=== PATIENT | female | born 1950 | race Caucasian/White ===

== ENCOUNTER 2018-03-28 11:19 | Observation (INO) ==
--- NOTE | 2018-03-28 11:59 | DR.H&P ---
H&P - History & Physical for Day of: H&P Date: 03/28/18 - Chief Complaint Chief Complaint: Chest Pain - History of Present Illness History of Present Illness: Patient is a 67 year old female that presents for evaluation of medical complaints. Patient reports that she was at [facility] 3 weeks ago. States that she was going to be evaluated for diverticulitis but reports that "my breathing went bad". Reports that she was placed on the darrell tilator x2 days. States that since she was discharged, she still has generalized weakness. Reports that she is short of breath. Reports that she is unable to walk distances without getting SOB. Does report chest pain that radiates up bilateral sides of neck. Reports that it is continuous. Reports a "funny feeling" in her chest. Denies any alleviating factors. Does state that she has a history of CHF. Reports that she had a heart catheterization done 4 years ago and was normal. Reports that she hasn't had a cardiac workup since. Is scheduled to see Dr. Rodriguez on April 18. Denies any other complaints. - Past Medical History Past Medical History: Arthritis, COPD, Hypertension Additional Medical History: Chronic respiratory failure with oxygen dependence 06/12. Sjogren's Syndrome, Insomnia, Left shoulder pain, Chronic Neck pain - Past Surgical History Surgical History: Cholecystectomy, Hysterectomy - Family History Family Medical History: Coronary Artery Disease - Social History Does patient currently use any type of tobacco product: No Have you used tobacco products in the last 12 months: No Type of Tobacco Use: None Does any household member use tobacco: No Alcohol Use: None Drug Use: None - Review of Systems Constitutional: Malaise Eyes: No Symptoms Reported ENT: No Symptoms Reported Respiratory: Shortness of Breath Cardiovascular: Chest Pain, Orthopnea Gastrointestinal: No Symptoms Reported Genitourinary: No Symptoms Reported Musculoskeletal: No Symptoms Reported Skin: No Symptoms Reported Neurological: No Symptoms Reported Oriented: Normal Eyes: Normal Ear: Normal Nose: Normal Throat: Normal Respiratory: Clear Throughout Cardiovascular: Normal : Normal Auscultation: Bowel Sounds: Normal Palpation: Normal Tenderness: Normal Skin: Normal Musculoskeletal: Shoulder Psychiatric: Normal Mood Description: Calm Affect: Normal Speech Pattern: Clear - Assessment/Plan (1) Chest pain Status: Acute Plan: Cardiac Enzymes/EKGs, Telemetry. Consider transfer to [facility] (2) Chronic respiratory failure Status: Acute Plan: Continuous O2 2L/m NC (3) Dyspnea Status: Acute Plan: Monitor O2 sats, Cardiac Workup, CXR, O2 - Allergies Allergies/Adverse Reactions: Allergies Allergy/AdvReac Type Severity Reaction Status Date / Time codeine Allergy Verified 03/28/18 12:04 levofloxacin [From Levaquin] Allergy Verified 03/28/18 12:04 metronidazole [From Flagyl] Allergy Verified 03/28/18 12:04 Quinidine-Quinine Analogues Allergy Verified 03/28/18 12:04 (Cincho secukinumab [From Cosentyx] Allergy Verified 03/28/18 12:04 Sulfa (Sulfonamide Allergy Verified 03/28/18 12:04 Antibiotics) [SULFA]
[2018-03-28 14:36] LABS: BASOPHILS % (AUTO) 0.9 % (0.2-1.0); EOSINOPHILS # (AUTO) 0.3 x10^3/uL (0.0-0.2); EOSINOPHILS % (AUTO) 5.2 % (0.9-2.9); HEMATOCRIT 27.4 % (36.0-47.0); LYMPHOCYTES # (AUTO) 1.8 X10^3/uL (1.3-2.9); LYMPHOCYTES % (AUTO) 36.6 % (21.0-51.0); MEAN CORPUSCULAR HEMOGLOBIN 29.6 pg (27.0-34.0); MEAN CORPUSCULAR HGB CONC 32.7 g/dL (33.0-35.0); MEAN CORPUSCULAR VOLUME 90.5 fL (80.0-100.0); MEAN PLATELET VOLUME 8.4 fL (7.4-11.0); MONOCYTES # (AUTO) 0.4 x10^3/uL (0.3-0.8); MONOCYTES % (AUTO) 7.6 % (0.0-13.0); NEUTROPHILS # (AUTO) 2.4 x10^3/uL (2.2-4.8); NEUTROPHILS % (AUTO) 49.7 % (42.0-75.0); PLATELET COUNT 235 X10^3/uL (150.0-450.0); RED BLOOD COUNT 3.03 X10^6/uL (3.5-5.4); RED CELL DISTRIBUTION WIDTH 16.7 % (11.6-16.5); WHITE BLOOD COUNT 4.9 X10^3/uL (3.6-10.0)
[2018-03-28 14:49] LABS: ALANINE AMINOTRANSFERASE 24 Units/L (12-78); ALBUMIN 2.8 g/dL (3.4-5.0); ALKALINE PHOSPHATASE 71 Units/L (46-116); ASPARTATE AMINO TRANSFERASE 20 Units/L (15-37); BLOOD UREA NITROGEN 10 mg/dL (7-18); CALCIUM 8.1 mg/dL (8.5-10.1); CARBON DIOXIDE 26.6 mmol/L (21-32); CHLORIDE 104 mmol/L (98-107); COR CA(FOR HYPOALB) 9.1 mg/dL (8.5-10.1); CREATININE 1.33 mg/dL (0.55-1.02); MAGNESIUM 1.9 mg/dL (1.7-2.9); SODIUM 141 mmol/L (136-145); TOTAL PROTEIN 7.5 g/dL (6.4-8.2); eGFR NON BLACK RACES 42 (>60)
[2018-03-28] MEDS ORDERED: PROVENTIL NEB TX 0.083% 2.5MG/ 3ML NEB PRN (14:58)
[2018-03-28 15:01] LABS: CREATINE KINASE 50 Units/L (26-192); CREATINE KINASE MB < 1.0 ng/mL (0-4.0); TROPONIN I < 0.02 ng/mL (0-1.5)
--- NOTE | 2018-03-28 15:43 | RAD ---
Exam: Portable chest History: 67-year-old female with chest pain Comparison: None Findings: Mild cardiomegaly is seen. No significant vascular congestion. However prominent interstitium is noted bilaterally, particularly in the left midlung. This is likely related to interstitial scarring though possibility of superimposed airspace disease cannot be excluded. No significant effusion on either side. Bony thorax is unremarkable. Impression: 1. Mild cardiomegaly. 2. Prominent interstitium noted bilaterally, particularly in the left mid lung. These findings are likely related to interstitial scarring though possibility of superimposed airspace disease cannot be excluded Reported By:
[2018-03-28 16:10] VITALS: BMI 27.3
[2018-03-28 16:52] LABS: BILIRUBIN,URINE NEGATIVE (NEGATIVE); BLOOD/HEMOGLOBIN,URINE 1+ (NEGATIVE); GLUCOSE, URINE NEGATIVE (NEGATIVE); KETONES,URINE NEGATIVE (NEGATIVE); LEUKOCYTE ESTERASE ,URINE NEGATIVE (NEGATIVE); NITRITES,URINE NEGATIVE (NEGATIVE); PROTEIN,URINE NEGATIVE (NEGATIVE); UROBILINOGEN,URINE NORMAL (NORMAL)
[2018-03-28] MEDS: DUONEB 0.5 MG/3 MG NEB SCH ×2 (16:53→17:03)
[2018-03-28 17:03] LABS: APPEARANCE,URINE CLEAR (CLEAR); BACTERIA,URINE NEGATIVE /HPF (NEGATIVE); COLOR,URINE YELLOW (YELLOW); RBC,URINE 0-2 /HPF (NONE SEEN); SQUAMOUS EPITHELIAL CELL,UR FEW /HPF (NEGATIVE)
[2018-03-28] MEDS ORDERED: CATAPRES TAB 0.1 MG PO PRN (17:12)
[2018-03-28] MEDS ORDERED: LOPRESSOR INJ 5 MG AMP IVP PRN (17:14)
[2018-03-28] MEDS ORDERED: RESTORIL CAP 15 MG PO PRN (18:58)
[2018-03-28] MEDS ORDERED: POTASSIUM CHLORIDE LIQ 20 MEQ UDC PO PRN (20:22)
[2018-03-28] MEDS ORDERED: POTASSIUM CHL 60 MEQ/NS 0.45% 500 ML IV PRN (20:22)
[2018-03-28] MEDS ORDERED: MICRO K EXTEN CAP 10 MEQ PO PRN (20:22)
[2018-03-28] MEDS ORDERED: POTASSIUM CHL 40 MEQ/NS 0.45% 500 ML IV PRN (20:22)
[2018-03-28] MEDS ORDERED: K-DUR TAB 20 MEQ PO PRN (20:22)
[2018-03-28] MEDS ORDERED: K-RIDER 10 MEQ/NS 100 ML 10 MEQ/100 ML BAG IV PRN (20:22)
[2018-03-28] MEDS ORDERED: KLOR-CON PO PRN (20:22)
[2018-03-28 20:37] LABS: CKMB % 2.1 % (<4); CREATINE KINASE 47 Units/L (26-192); CREATINE KINASE MB < 1.0 ng/mL (0-4.0); TROPONIN I < 0.02 ng/mL (0-1.5)
[2018-03-28] MEDS: LOVENOX INJ 30 MG SYR SC SCH (20:41)
[2018-03-28] MEDS ORDERED: BROVANA IN SCH (21:00)
[2018-03-28] MEDS ORDERED: PULMICORT NEB TX 0.5 MG NEB SCH (21:00)
[2018-03-28] MEDS ORDERED: MAALOX or MYLANTA PO PRN (21:43)
[2018-03-28] MEDS: MAGNESIUM SULFATE 1 GRAM/100 mL PREMIX 1 GM/100 ML BAG IV PRN ×2 (23:05→23:56)
[2018-03-29] MEDS: DUONEB 0.5 MG/3 MG NEB SCH ×3 (00:34→13:30)
[2018-03-29 02:28] LABS: CKMB % 2.9 % (<4); CREATINE KINASE 35 Units/L (26-192); CREATINE KINASE MB < 1.0 ng/mL (0-4.0); TROPONIN I 0.02 ng/mL (0-1.5)
[2018-03-29 06:11] LABS: BASOPHILS % (AUTO) 0.5 % (0.2-1.0); EOSINOPHILS # (AUTO) 0.2 x10^3/uL (0.0-0.2); EOSINOPHILS % (AUTO) 4.6 % (0.9-2.9); HEMATOCRIT 27.5 % (36.0-47.0); HEMOGLOBIN 8.9 g/dL (12.0-16.0); LYMPHOCYTES # (AUTO) 1.4 X10^3/uL (1.3-2.9); LYMPHOCYTES % (AUTO) 34.9 % (21.0-51.0); MEAN CORPUSCULAR HEMOGLOBIN 29.5 pg (27.0-34.0); MEAN CORPUSCULAR HGB CONC 32.5 g/dL (33.0-35.0); MEAN CORPUSCULAR VOLUME 90.7 fL (80.0-100.0); MEAN PLATELET VOLUME 8.4 fL (7.4-11.0); MONOCYTES # (AUTO) 0.4 x10^3/uL (0.3-0.8); MONOCYTES % (AUTO) 9.3 % (0.0-13.0); NEUTROPHILS % (AUTO) 50.7 % (42.0-75.0); PLATELET COUNT 204 X10^3/uL (150.0-450.0); RED BLOOD COUNT 3.04 X10^6/uL (3.5-5.4); RED CELL DISTRIBUTION WIDTH 16.9 % (11.6-16.5)
[2018-03-29 06:35] LABS: ALANINE AMINOTRANSFERASE 20 Units/L (12-78); ALBUMIN 2.5 g/dL (3.4-5.0); ALKALINE PHOSPHATASE 60 Units/L (46-116); ASPARTATE AMINO TRANSFERASE 19 Units/L (15-37); BLOOD UREA NITROGEN 11 mg/dL (7-18); CALCIUM 7.9 mg/dL (8.5-10.1); CARBON DIOXIDE 25.7 mmol/L (21-32); CHLORIDE 106 mmol/L (98-107); CHOL/HDL RATIO 6.4 (0.0-5.0); CHOLESTEROL 197 mg/dL (0-200); COR CA(FOR HYPOALB) 9.1 mg/dL (8.5-10.1); COR NA(FOR HYPERGLY) 142 mmol/L (136-145); HDL CHOLESTEROL 31 mg/dL (40-60); MAGNESIUM 2.8 mg/dL (1.7-2.9); SODIUM 142 mmol/L (136-145); TOTAL PROTEIN 6.8 g/dL (6.4-8.2); TRIGLYCERIDES 190 mg/dL (0-150); eGFR NON BLACK RACES 58 (>60)
[2018-03-29] MEDS: LOVENOX INJ 30 MG SYR SC SCH (08:41)
[2018-03-29] MEDS ORDERED: REMERON PO SCH ×2 (09:00→21:00)
[2018-03-29] MEDS ORDERED: PATIENT'S HOME MEDICATION (Mycophenolate Mofetil [Mycophenolate Mofetil] 500 MG) PO SCH (09:00)
[2018-03-29] MEDS ORDERED: ASPIRIN EC 81 MG PO SCH (09:00)
[2018-03-29] MEDS ORDERED: NexIUM PO SCH (09:00)
[2018-03-29] MEDS ORDERED: PROTONIX TAB 40 MG PO SCH (09:00)
[2018-03-29] MEDS ORDERED: CARAFATE PO SCH (09:00)
[2018-03-29] MEDS ORDERED: K-DUR TAB 20 MEQ PO SCH (09:00)
[2018-03-29] MEDS ORDERED: LASIX PO SCH (09:00)
[2018-03-29] MEDS ORDERED: SYNTHROID 75 mcg TAB PO SCH (09:00)
[2018-03-29] MEDS ORDERED: AUGMENTIN 875 MG/125 MG TAB PO SCH (09:00)
[2018-03-29] MEDS ORDERED: CATAPRES TAB 0.1 MG PO SCH (09:00)
[2018-03-29] MEDS ORDERED: COREG TAB 3.125 MG PO SCH (09:00)
[2018-03-29] MEDS ORDERED: COZAAR PO SCH (09:00)
--- NOTE | 2018-03-29 09:11 | PCM.PROG ---
Progress Note - Progress Note for Day of Date of Exam: 03/29/18 - Subjective Subjective: 67 WF DIRECT ADMIT WITH SOB, UPPER ABDOMINAL PAIN, "BURNING" REPORTS RECENT SEVERE DIVERTICULITIS ATTACK REQUIRING HOSPITALIZATION IN [place]. PT REPORTS HX OF PULMONARY FIBROSIS AND STATES HER "CHEST" LUNGS DOES NOT FEEL RIGHT SINCE THEN. PT IS SET UP FOR A VQ LUNG SCAN THIS AM. RESTARTED HOME MEDS, SERIAL CE AND EKG'S STABLE. WILL ADD AMYLASE AND LIPASE, CARAFATE. - Past Medical Family Social History Past Med/Fam/Surg Hx: No changes since H&P Allergies: Allergies codeine Allergy (Verified 03/28/18 12:04) levofloxacin [From Levaquin] Allergy (Verified 03/28/18 12:04) metronidazole [From Flagyl] Allergy (Verified 03/28/18 12:04) Quinidine-Quinine Analogues (Cincho Allergy (Verified 03/28/18 12:04) secukinumab [From Cosentyx] Allergy (Verified 03/28/18 12:04) Sulfa (Sulfonamide Antibiotics) [SULFA] Allergy (Verified 03/28/18 12:04) - Review of Systems ROS: No change since H&P - Vital Signs and I&O's Vital Signs: Temperature 97.8 F Pulse Rate [Right Brachial] 62 Pulse Rate 64 Respiratory Rate 23 Blood Pressure [Right Arm] 135/57 Blood Pressure 118/56 O2 Sat by Pulse Oximetry 99 Intake and Output: Intake & Output 03/26/18 03/27/18 03/28/18 03/29/18 11:59 11:59 11:59 11:59 Intake Total 810 / 810 Output Total 550 / 550 Balance 260 / 260 - Physical Exam Oriented: Normal Eyes: Normal Ear: Normal Nose: Normal Throat: Normal Respiratory: Diminished Cardiovascular: Normal : Normal Auscultation: Bowel Sounds: Normal Tenderness: LLQ, Epigastric Skin: Normal Musculoskeletal: Shoulder, Back:Lumbar Psychiatric: Normal Mood Description: Calm Affect: Anxious, Normal Speech Pattern: Clear, Appropriate - Laboratory and Diagnostics Result Diagrams: 03/29/18 05:30 03/29/18 05:30 Labs: Laboratory WBC 4.0 X10^3/uL (3.6-10.0) 03/29/18 05:30 RBC 3.04 X10^6/uL (3.5-5.4) L 03/29/18 05:30 Hgb 8.9 g/dL (12.0-16.0) L 03/29/18 05:30 Hct 27.5 % (36.0-47.0) L 03/29/18 05:30 MCV 90.7 fL (80.0-100.0) 03/29/18 05:30 MCH 29.5 pg (27.0-34.0) 03/29/18 05:30 MCHC 32.5 g/dL (33.0-35.0) L 03/29/18 05:30 RDW 16.9 % (11.6-16.5) H 03/29/18 05:30 Plt Count 204 X10^3/uL (150.0-450.0) 03/29/18 05:30 MPV 8.4 fL (7.4-11.0) 03/29/18 05:30 Neut % (Auto) 50.7 % (42.0-75.0) 03/29/18 05:30 Lymph % (Auto) 34.9 % (21.0-51.0) 03/29/18 05:30 [place] % (Auto) 9.3 % (0.0-13.0) 03/29/18 05:30 Eos % (Auto) 4.6 % (0.9-2.9) H 03/29/18 05:30 Baso % (Auto) 0.5 % (0.2-1.0) 03/29/18 05:30 Neut # (Auto) 2.0 x10^3/uL (2.2-4.8) L 03/29/18 05:30 Lymph # (Auto) 1.4 X10^3/uL (1.3-2.9) 03/29/18 05:30 [place] # (Auto) 0.4 x10^3/uL (0.3-0.8) 03/29/18 05:30 Eos # (Auto) 0.2 x10^3/uL (0.0-0.2) 03/29/18 05:30 Baso # (Auto) 0.0 X10^3/uL (0.0-0.1) 03/29/18 05:30 Absolute Nucleated RBC 0.0 /100WBC 03/29/18 05:30 INR Target Range - 03/28/18 14:24 INR 0.98 (0.8-1.3) 03/28/18 14:24 APTT 27.6 SECONDS (22.9-36.5) 03/28/18 14:24 PTT Comment - 03/28/18 14:24 Sodium 142 mmol/L (136-145) 03/29/18 05:30 Corrected Sodium 142 mmol/L (136-145) 03/29/18 05:30 Potassium 3.9 mmol/L (3.5-5.1) 03/29/18 05:30 Chloride 106 mmol/L (98-107) 03/29/18 05:30 Carbon Dioxide 25.7 mmol/L (21-32) 03/29/18 05:30 BUN 11 mg/dL (7-18) 03/29/18 05:30 Creatinine 1.00 mg/dL (0.55-1.02) 03/29/18 05:30 Est GFR (MDRD) Af Amer > 60 (>60) 03/29/18 05:30 Est GFR (MDRD) Non-Af 58 (>60) L 03/29/18 05:30 Glucose 111 mg/dL (65-99) H 03/29/18 05:30 Calcium 7.9 mg/dL (8.5-10.1) L 03/29/18 05:30 Corrected Calcium 9.1 mg/dL (8.5-10.1) 03/29/18 05:30 Magnesium 2.8 mg/dL (1.7-2.9) 03/29/18 05:30 Total Bilirubin 0.20 mg/dL (0.2-1.0) 03/29/18 05:30 AST 19 Units/L (15-37) 03/29/18 05:30 ALT 20 Units/L (12-78) 03/29/18 05:30 Alkaline Phosphatase 60 Units/L (46-116) 03/29/18 05:30 Creatine Kinase 35 Units/L (26-192) 03/29/18 01:58 CK-MB (CK-2) < 1.0 ng/mL (0-4.0) 03/29/18 01:58 CK/CKMB % Calc 2.9 % (<4) 03/29/18 01:58 Troponin I 0.02 ng/mL (0-1.5) 03/29/18 01:58 Total Protein 6.8 g/dL (6.4-8.2) 03/29/18 05:30 Albumin 2.5 g/dL (3.4-5.0) L 03/29/18 05:30 Globulin 4.3 g/dL (2.5-4.5) 03/29/18 05:30 Albumin/Globulin Ratio 0.6 Ratio (1.1-2.1) L 03/29/18 05:30 Triglycerides 190 mg/dL (0-150) H 03/29/18 05:30 Cholesterol 197 mg/dL (0-200) 03/29/18 05:30 LDL Cholesterol, Calc 128 mg/dL (0-100) H 03/29/18 05:30 HDL Cholesterol 31 mg/dL (40-60) L 03/29/18 05:30 Cholesterol/HDL Ratio 6.4 (0.0-5.0) H 03/29/18 05:30 Specimen Type Clean catch urine 03/28/18 16:41 Urine Color Yellow (YELLOW) 03/28/18 16:41 Urine Appearance Clear (CLEAR) 03/28/18 16:41 Urine pH 5.0 (5.0 - 8.0) 03/28/18 16:41 Ur Specific [place] 1.010 (1.000-1.030) 03/28/18 16:41 Urine Protein Negative (NEGATIVE) 03/28/18 16:41 Urine Glucose (UA) Negative (NEGATIVE) 03/28/18 16:41 Urine Ketones Negative (NEGATIVE) 03/28/18 16:41 Urine Occult Blood 1+ (NEGATIVE) 03/28/18 16:41 Urine Nitrite Negative (NEGATIVE) 03/28/18 16:41 Urine Bilirubin Negative (NEGATIVE) 03/28/18 16:41 Urine Urobilinogen Normal (NORMAL) 03/28/18 16:41 Ur Leukocyte Esterase Negative (NEGATIVE) 03/28/18 16:41 Urine RBC 0-2 /HPF (NONE SEEN) 03/28/18 16:41 Urine WBC 0-2 /HPF (NONE SEEN) 03/28/18 16:41 Ur Squamous Epith Cells Few /HPF (NEGATIVE) 03/28/18 16:41 Urine Bacteria Negative /HPF (NEGATIVE) 03/28/18 16:41 Ur Culture Indicated? No/not indicated 03/28/18 16:41 - Plan (1) Chest pain Status: Acute Plan: Cardiac Enzymes/EKGs, Telemetry. RESP THERAPY, CONFIRM HOME MEDICATION. BP CONTROL, SUPPLEMENTAL O2. VQ SCAN THIS AM R/O PE. ABG THIS AM. GI TREATMENT OF CHEST PAIN, CARAFATE, PPI (2) Dyspnea Status: Acute Plan: Monitor O2 sats, Cardiac Workup, CXR, O2 (3) Pulmonary fibrosis Status: Acute (4) Hyperlipemia Status: Acute (5) History of diverticulitis Status: Acute
[2018-03-29 09:36] LABS: AMYLASE 84 Units/L (25-115); LIPASE 251 Units/L (73-393)
[2018-03-29] MEDS ORDERED: SALINE 3% 15 ML NEB TX ONE (09:43)
[2018-03-29] MEDS: ZANAFLEX PO SCH ×2 (10:16→10:20)
[2018-03-29] MEDS: CARAFATE ORAL SUSP PO SCH ×3 (10:20→16:29)
[2018-03-29] MEDS: ZOFRAN TAB 4 MG PO SCH ×2 (10:21→16:14)
[2018-03-29] MEDS ORDERED: SALINE 3% 15 ML NEB TX NEB ONE (10:45)
--- NOTE | 2018-03-29 12:17 | NM ---
Indication: Shortness of breath Exam: V/Q lung scan. Comparison: Chest x-ray 03/28/2018. Technique: The patient was ventilated with 30 mCi of technetium DTPA and spot images were obtained. The patient was injected with 5 mCi of technetium MAA and spot perfusion images were obtained. Findings: There is mild heterogeneous ventilation throughout both lungs with no large peripheral ventilation defects. There is homogeneous perfusion throughout both lungs with no obvious focal defects seen. Impression: Low probability for a pulmonary embolus. Reported By:
[2018-03-29 13:05] LABS: ABG BASE EXCESS 4.1 mmol/L (-2.0-2.0); ABG HCO3 29.2 mmol/L (22-26)
[2018-03-29] MEDS ORDERED: NEURONTIN CAP 400 MG PO SCH (14:00)
[2018-03-29] MEDS ORDERED: PROVENTIL NEB TX 0.083% 2.5MG/ 3ML NEB PRN (15:34)
[2018-03-29] MEDS ORDERED: LEVSIN/MAALOX/LIDOC VISC PO PRN (15:45)
[2018-03-29] MEDS ORDERED: MORPHINE SULFATE INJ 2 MG INJ IVP PRN (16:02)
[2018-03-29 16:37] LABS: CKMB % 2.2 % (<4); CREATINE KINASE 45 Units/L (26-192); CREATINE KINASE MB < 1.0 ng/mL (0-4.0); TROPONIN I < 0.02 ng/mL (0-1.5)
[2018-03-29 18:33] VITALS: BP 158/66
[2018-03-29] MEDS ORDERED: BROVANA IN SCH ×2 (21:00)
[2018-03-29] MEDS ORDERED: PULMICORT NEB TX 0.5 MG NEB SCH (21:00)
[2018-03-30] MEDS ORDERED: COZAAR PO SCH (09:00)
--- NOTE | 2018-04-16 15:35 | PCM.DCPLAN ---
Discharge Summary - Admission Date Date of Admission: 03/28/18 - Discharge Date Discharge Date: 03/29/18 - Admission Diagnoses (1) Chest pain Status: Acute (2) Chronic respiratory failure Status: Acute (3) Dyspnea Status: Acute (4) History of diverticulitis Status: Acute (5) Hyperlipemia Status: Acute (6) Pulmonary fibrosis Status: Acute - Discharge Diagnoses Discharge Diagnosis: SAME ADMISSION DIAGNOSIS - Discharge Medications Discharge Medications: Home Medication List amoxicillin-pot clavulanate 1 tab PO Q12H 03/28/18 [History] aspirin 81 mg PO DAILY 03/28/18 [History] carvedilol 3.125 mg PO BID 03/28/18 [History] clonidine HCl 0.1 mg PO DAILY 03/28/18 [History] esomeprazole magnesium 40 mg PO DAILY 03/28/18 [History] furosemide 40 mg PO BID 03/28/18 [History] gabapentin 400 mg PO TID 03/28/18 [History] levothyroxine 75 mcg PO DAILY 03/28/18 [History] losartan 100 mg PO DAILY 03/28/18 [History] mirtazapine 15 mg PO DAILY 03/28/18 [History] mycophenolate mofetil 500 mg PO BID 03/28/18 [History] ondansetron HCl 8 mg PO Q8H 03/28/18 [History] pantoprazole 40 mg PO DAILY 03/28/18 [History] potassium chloride [Klor-Con M20] 20 meq PO BID 03/28/18 [History] sucralfate 1 tab PO Q12H 03/28/18 [History] tizanidine 4 mg PO Q12H 03/28/18 [History] Prescriptions: - Hospital Course Vital Signs: Temperature 98.0 F Pulse Rate [Right Brachial] 60 Pulse Rate 60 Respiratory Rate 24 Blood Pressure [Right Arm] 158/66 Blood Pressure 118/56 O2 Sat by Pulse Oximetry 99 Latest Lab Results: Laboratory Last Values WBC 4.0 X10^3/uL (3.6-10.0) 03/29/18 05:30 RBC 3.04 X10^6/uL (3.5-5.4) L 03/29/18 05:30 Hgb 8.9 g/dL (12.0-16.0) L 03/29/18 05:30 Hct 27.5 % (36.0-47.0) L 03/29/18 05:30 MCV 90.7 fL (80.0-100.0) 03/29/18 05:30 MCH 29.5 pg (27.0-34.0) 03/29/18 05:30 MCHC 32.5 g/dL (33.0-35.0) L 03/29/18 05:30 RDW 16.9 % (11.6-16.5) H 03/29/18 05:30 Plt Count 204 X10^3/uL (150.0-450.0) 03/29/18 05:30 MPV 8.4 fL (7.4-11.0) 03/29/18 05:30 Neut % (Auto) 50.7 % (42.0-75.0) 03/29/18 05:30 Lymph % (Auto) 34.9 % (21.0-51.0) 03/29/18 05:30 [place] % (Auto) 9.3 % (0.0-13.0) 03/29/18 05:30 Eos % (Auto) 4.6 % (0.9-2.9) H 03/29/18 05:30 Baso % (Auto) 0.5 % (0.2-1.0) 03/29/18 05:30 Neut # (Auto) 2.0 x10^3/uL (2.2-4.8) L 03/29/18 05:30 Lymph # (Auto) 1.4 X10^3/uL (1.3-2.9) 03/29/18 05:30 [place] # (Auto) 0.4 x10^3/uL (0.3-0.8) 03/29/18 05:30 Eos # (Auto) 0.2 x10^3/uL (0.0-0.2) 03/29/18 05:30 Baso # (Auto) 0.0 X10^3/uL (0.0-0.1) 03/29/18 05:30 Absolute Nucleated RBC 0.0 /100WBC 03/29/18 05:30 INR Target Range - 03/28/18 14:24 INR 0.98 (0.8-1.3) 03/28/18 14:24 APTT 27.6 SECONDS (22.9-36.5) 03/28/18 14:24 PTT Comment - 03/28/18 14:24 Sample Site Right brachial 03/29/18 12:50 ABG pH 7.420 (7.35-7.45) 03/29/18 12:50 ABG pCO2 45.0 mmHg (35.0-45.0) 03/29/18 12:50 ABG pO2 108.0 mmHg (80.0-100.0) H 03/29/18 12:50 ABG HCO3 29.2 mmol/L (22-26) H 03/29/18 12:50 ABG O2 Saturation 98.0 % (90-100) 03/29/18 12:50 ABG Base Excess 4.1 mmol/L (-2.0-2.0) H 03/29/18 12:50 Lauri Test Na 03/29/18 12:50 A-a Gradient 35.0 mmHg 03/29/18 12:50 FiO2 28.0 03/29/18 12:50 Blood Gas Comments Herb well aw 03/29/18 12:50 Sodium 142 mmol/L (136-145) 03/29/18 05:30 Corrected Sodium 142 mmol/L (136-145) 03/29/18 05:30 Potassium 3.9 mmol/L (3.5-5.1) 03/29/18 05:30 Chloride 106 mmol/L (98-107) 03/29/18 05:30 Carbon Dioxide 25.7 mmol/L (21-32) 03/29/18 05:30 BUN 11 mg/dL (7-18) 03/29/18 05:30 Creatinine 1.00 mg/dL (0.55-1.02) 03/29/18 05:30 Est GFR (MDRD) Af Amer > 60 (>60) 03/29/18 05:30 Est GFR (MDRD) Non-Af 58 (>60) L 03/29/18 05:30 Glucose 111 mg/dL (65-99) H 03/29/18 05:30 Calcium 7.9 mg/dL (8.5-10.1) L 03/29/18 05:30 Corrected Calcium 9.1 mg/dL (8.5-10.1) 03/29/18 05:30 Magnesium 2.8 mg/dL (1.7-2.9) 03/29/18 05:30 Total Bilirubin 0.20 mg/dL (0.2-1.0) 03/29/18 05:30 AST 19 Units/L (15-37) 03/29/18 05:30 ALT 20 Units/L (12-78) 03/29/18 05:30 Alkaline Phosphatase 60 Units/L (46-116) 03/29/18 05:30 Creatine Kinase 45 Units/L (26-192) 03/29/18 16:03 CK-MB (CK-2) < 1.0 ng/mL (0-4.0) 03/29/18 16:03 CK/CKMB % Calc 2.2 % (<4) 03/29/18 16:03 Troponin I < 0.02 ng/mL (0-1.5) 03/29/18 16:03 Total Protein 6.8 g/dL (6.4-8.2) 03/29/18 05:30 Albumin 2.5 g/dL (3.4-5.0) L 03/29/18 05:30 Globulin 4.3 g/dL (2.5-4.5) 03/29/18 05:30 Albumin/Globulin Ratio 0.6 Ratio (1.1-2.1) L 03/29/18 05:30 Triglycerides 190 mg/dL (0-150) H 03/29/18 05:30 Cholesterol 197 mg/dL (0-200) 03/29/18 05:30 LDL Cholesterol, Calc 128 mg/dL (0-100) H 03/29/18 05:30 HDL Cholesterol 31 mg/dL (40-60) L 03/29/18 05:30 Cholesterol/HDL Ratio 6.4 (0.0-5.0) H 03/29/18 05:30 Amylase 84 Units/L (25-115) 03/29/18 05:30 Lipase 251 Units/L (73-393) 03/29/18 05:30 Specimen Type Clean catch urine 03/28/18 16:41 Urine Color Yellow (YELLOW) 03/28/18 16:41 Urine Appearance Clear (CLEAR) 03/28/18 16:41 Urine pH 5.0 (5.0 - 8.0) 03/28/18 16:41 Ur Specific [place] 1.010 (1.000-1.030) 03/28/18 16:41 Urine Protein Negative (NEGATIVE) 03/28/18 16:41 Urine Glucose (UA) Negative (NEGATIVE) 03/28/18 16:41 Urine Ketones Negative (NEGATIVE) 03/28/18 16:41 Urine Occult Blood 1+ (NEGATIVE) 03/28/18 16:41 Urine Nitrite Negative (NEGATIVE) 03/28/18 16:41 Urine Bilirubin Negative (NEGATIVE) 03/28/18 16:41 Urine Urobilinogen Normal (NORMAL) 03/28/18 16:41 Ur Leukocyte Esterase Negative (NEGATIVE) 03/28/18 16:41 Urine RBC 0-2 /HPF (NONE SEEN) 03/28/18 16:41 Urine WBC 0-2 /HPF (NONE SEEN) 03/28/18 16:41 Ur Squamous Epith Cells Few /HPF (NEGATIVE) 03/28/18 16:41 Urine Bacteria Negative /HPF (NEGATIVE) 03/28/18 16:41 Ur Culture Indicated? No/not indicated 03/28/18 16:41 Hospital Course: Patient is a 67 year old female that presents for evaluation of medical complaints. Patient reports that she was at [facility] 3 weeks ago. States that she was going to be evaluated for diverticulitis but reports that "my breathing went bad". Reports that she was placed on the ventilator x2 days. States that since she was discharged, she still has generalized weakness. Reports that she is short of breath. Reports that she is unable to walk distances without getting SOB. Does report chest pain that radiates up bilateral sides of neck. Reports that it is continuous. Reports a "funny feeling" in her chest. Denies any alleviating factors. Does state that she has a history of CHF. Reports that she had a heart catheterization done 4 years ago and was normal. Reports that she hasn't had a cardiac workup since. Is scheduled to see Dr. Rodriguez on April 18. Cardiac enzymes and EKGS were unremarkable. VQ scan was negative for acute PE. Patient was transferred to [facility] for further care. - Discharge Plan Disposition: XFER SHT-TRM HOSP Condition: Stable - Follow ups/Referrals Follow ups/Referrals: [facility] [Other] (PT TRANSFERRED VIA EMS TO [facility] - Instructions Forms: Patient Portal
== END 2018-03-29 17:18 | disposition short-term general hospital (02) ==
LOC: ICU
PROVIDERS: ADMIT Internal Medicine; ATTEND Internal Medicine
DX: I51.7 Cardiomegaly; Z87.19 Personal history of other diseases of the digestive system; J84.10 Pulmonary fibrosis, unspecified; R07.89 Other chest pain; Z99.81 Dependence on supplemental oxygen; R94.4 Abnormal results of kidney function studies; Z79.01 Long term (current) use of anticoagulants; J96.10 Chronic respiratory failure, unspecified whether with hypoxia or hypercapnia; R94.31 Abnormal electrocardiogram [ECG] [EKG]; E78.2 Mixed hyperlipidemia; Z79.899 Other long term (current) drug therapy; J44.9 Chronic obstructive pulmonary disease, unspecified
CPT/HCPCS: 36415; 36600; 71010; 71045; 78582; 80053; 80061; 81001; 82150; 82550; 82553; 82803; 83690; 83735; 84484; 85025; 85610; 85730; 93005; 93010; 94640; 96372; 96374; A4216; A4222; G0378; J1650; J2270; J3475; J7620; J7626; S0181